=== PATIENT | male | born 1930 | race Caucasian/White ===

== ENCOUNTER 2018-09-10 14:09 | Inpatient (IN) | payer MEDICARE ==
[~2018-09-10] VITALS: Ht 177.8 cm; Wt 68.5 kg
[2018-09-10 14:09] VITALS: BP_SYST 181
[2018-09-10 15:54] LABS: BILIRUBIN,URINE NEGATIVE (NEGATIVE); BLOOD, URINE 3+ (NEGATIVE); CLARITY/URINE CLOUDY (CLEAR); COLOR,URINE RED (YELLOW); GLUCOSE,URINE NEGATIVE (NEGATIVE); KETONES,URINE NEGATIVE (NEGATIVE); LEUKOCYTE ESTERASE ,URINE 2+ (NEGATIVE); NITRITE, URINE POSITIVE (NEGATIVE); PH,URINE 7.5 (5.0-8.0); PROTEIN URINE 3+ (NEGATIVE); UROBILINOGEN,URINE 0.2 (0.2-1.0)
[2018-09-10 15:56] LABS: RBC,URINE >100 /HPF (0-3); WBC,URINE 50-80 /HPF (0-3)
[2018-09-10 15:57] LABS: BACTERIA,URINE MODERATE /HPF (None Seen); MUCUS,URINE None Seen /LPF (None Seen)
[2018-09-10 16:27] LABS: HEMATOCRIT 29.7 % (36-54); HEMOGLOBIN 9.7 g/dL (14.0-18.0); MEAN CORPUSCULAR HEMOGLOBIN 28 pg (27-31); MEAN CORPUSCULAR HGB CONC 33 % (32-36); MEAN CORPUSCULAR VOLUME 86 fL (79.0-98.0); PLATELET COUNT (AUTO) 299 K/uL (130-430); RED BLOOD CELL COUNT(AUTO) 3.47 MIL/uL (4.2-6.2); RED CELL DISTRIBUTION WIDTH 16.3 % (9.0-15.0); WHITE BLOOD COUNT (AUTO) 8.1 K/uL (4.8-10.8)
[2018-09-10 16:33] LABS: ANION GAP 9 (5-15); CALCIUM 9.1 mg/dL (8.4-11.0); CHLORIDE 105 mmol/L (98-107); CREATININE 2.97 mg/dL (0.55-1.30); GLUCOSE 126 mg/dL (70-99); POTASSIUM 5.3 mmol/L (3.5-5.1); SODIUM SERUM 136 mmol/L (136-145); UREA NITROGEN, BLOOD 53 mg/dL (8-21)
[2018-09-10 16:38] LABS: ALANINE AMINOTRANSFERASE 17 U/L (12-78); ALBUMIN 2.5 g/dL (3.4-4.8); ASPARTATE AMINOTRANSFERASE 14 U/L (10-37); INR 0.9 (0.80-1.20); PROTHROMBIN TIME 9.7 SECS (9.5-12.5); TOTAL BILIRUBIN 0.4 mg/dL (0.0-1.0)
[2018-09-10 16:44] LABS: BAND % (MANUAL) 5 % (0-6); LYMPHOCYTES % (MANUAL) 3 % (20-46)
[2018-09-10 16:45] LABS: METAMYELOCYTES % 1 % (0-0); MONOCYTES % (MANUAL) 1 % (0-11)
[2018-09-10 17:12] LABS: BASOPHILS % (MANUAL) 0 % (0-2); EOSINOPHILS % (MANUAL) 0 % (0-7)
[2018-09-10] MEDS ORDERED: traMADol HCL HCL 50 MG TABLET (ULTRAM) PO ONE (17:15)
[2018-09-10] MEDS ORDERED: SODIUM POLYSTYRENE SULFONATE 15 GM/60 ML UDBTL PO ONE (18:30)
[2018-09-10] MEDS ORDERED: cefTRIAXone 1 GM IVPB PREMIX 50 ML IV ONE (18:30)
[2018-09-10] MEDS ORDERED: NACL 0.9% 1,000 ML IV ONE (19:45)
[2018-09-10] MEDS ORDERED: VANCOMYCIN HCL 1,000 MG in NS 250 ML IV ONE (20:00)
[2018-09-10] MEDS ORDERED: KCL 20 mEq in D5NS 1000 mL 1,000 ML IV ONE (20:15)
[2018-09-10 21:29] VITALS: BP_SYST 96
[2018-09-10] MEDS ORDERED: CEFEPIME 1 GM in D5W 50 ML IV SCH (22:45)
[2018-09-10] MEDS ORDERED: D5NS 1,000 ML IV SCH (23:00)
[2018-09-10 23:33] LABS: HEMOGLOBIN 8.4 g/dL (14.0-18.0)
[2018-09-11] MEDS ORDERED: CEFEPIME 1 GM/VIAL (MAXIPIME) ONE (04:11)
[2018-09-11] MEDS ORDERED: cefTRIAXone 1 GM IVPB PREMIX 50 ML IV ONE (04:12)
[2018-09-11] MEDS ORDERED: VANCOMYCIN HCL 1000 MG/VIAL IV ONE (04:12)
[2018-09-11 06:09] LABS: BASOPHILS # (AUTO) 0.1 K/uL (0.0-0.2); BASOPHILS % (AUTO) 0.3 % (0.0-2.0); EOSINOPHILS % (AUTO) 0.1 % (0.0-4.0); HEMATOCRIT 25.7 % (36-54); HEMOGLOBIN 8.2 g/dL (14.0-18.0); LYMPHOCYTES # (AUTO) 0.6 K/uL (1.0-5.5); LYMPHOCYTES % (AUTO) 2.9 % (20.5-51.5); MEAN CORPUSCULAR HEMOGLOBIN 27 pg (27-31); MEAN CORPUSCULAR HGB CONC 32 % (32-36); MEAN CORPUSCULAR VOLUME 86 fL (79.0-98.0); MONOCYTES # (AUTO) 1.3 K/uL (0.0-1.0); MONOCYTES % (AUTO) 6.3 % (1.7-9.3); NEUTROPHILS # (AUTO) 18.1 K/uL (1.8-7.7); NEUTROPHILS % (AUTO) 90.4 % (40.0-70.0); PLATELET COUNT (AUTO) 287 K/uL (130-430)
[2018-09-11 06:34] VITALS: BP_SYST 123
[2018-09-11 07:10] VITALS: BP_SYST 124
[2018-09-11 08:05] LABS: ANION GAP 11 (5-15); CALCIUM 8.4 mg/dL (8.4-11.0); CHLORIDE 107 mmol/L (98-107); CREATININE 3.61 mg/dL (0.55-1.30); GLUCOSE 124 mg/dL (70-99); POTASSIUM 5.4 mmol/L (3.5-5.1); SODIUM SERUM 138 mmol/L (136-145); UREA NITROGEN, BLOOD 58 mg/dL (8-21)
[2018-09-11] MEDS ORDERED: HYT1 PO (08:58)
[2018-09-11] MEDS ORDERED: PRED5TAB PO (08:58)
[2018-09-11] MEDS ORDERED: MEGE400O4 PO (08:58)
[2018-09-11] MEDS ORDERED: METO25TA6 PO (08:58)
[2018-09-11] MEDS: NACL 0.9% 1,000 ML IV SCH ×2 (09:25→17:15)
[2018-09-11] MEDS: ACETAMINOPHEN 325 MG TABLET PO PRN ×2 (09:47→15:18)
[2018-09-11] MEDS ORDERED: ACETAMINOPHEN 325 MG TABLET ONE (09:55)
[2018-09-11 10:38] LABS: HEMATOCRIT 24.8 % (36-54); HEMOGLOBIN 7.8 g/dL (14.0-18.0)
[2018-09-11] MEDS ORDERED: PREDNISONE 5 MG TABLET PO ONE (11:15)
[2018-09-11] MEDS ORDERED: TERAZOSIN HCL 1 MG CAPSULE (HYTRIN) PO ONE (11:15)
[2018-09-11] MEDS ORDERED: METOPROLOL TARTRATE 25 MG TABLET PO ONE (11:30)
[2018-09-11] MEDS ORDERED: MEGESTROL ACETATE 400 MG/10 ML UDC PO ONE (11:30)
[2018-09-11 12:26] VITALS: BP_SYST 104
[2018-09-11] MEDS ORDERED: GENTAMICIN 100 mg/50 mL NS 50 ML IV ONE (15:30)
[2018-09-11 17:07] VITALS: BP_SYST 128
[2018-09-11 18:04] LABS: HEMATOCRIT 29.3 % (36-54); HEMOGLOBIN 9.5 g/dL (14.0-18.0)
[2018-09-11 19:56] VITALS: BP_SYST 141
[2018-09-11] MEDS ORDERED: METOPROLOL TARTRATE 25 MG TABLET PO SCH (21:00)
[2018-09-11] MEDS ORDERED: MEGESTROL ACETATE 400 MG/10 ML UDC PO SCH (21:00)
[2018-09-12] MEDS ORDERED: TERAZOSIN HCL 1 MG CAPSULE (HYTRIN) PO SCH (09:00)
[2018-09-12] MEDS ORDERED: PREDNISONE 5 MG TABLET PO SCH (09:00)
== END 2018-09-11 21:42 | disposition short-term general hospital (02) | DRG 698 ==
LOC: SED 14:09 → STU 20:11 → MERGE 20:11 → STU 21:00
PROVIDERS: ADMIT Family Medicine; ATTEND Family Medicine
PROC: 30233N1 Transfusion of Nonautologous Red Blood Cells into Peripheral Vein, Percutaneous Approach (ICD-10-PCS; principal; 2018-09-11)
DX: T83.593A Infection and inflammatory reaction due to other urinary stents, initial encounter (principal); A41.9 Sepsis, unspecified organism; N10 Acute pyelonephritis; N17.9 Acute kidney failure, unspecified; D63.8 Anemia in other chronic diseases classified elsewhere; E86.0 Dehydration; E87.5 Hyperkalemia; F03.90 Unspecified dementia, unspecified severity, without behavioral disturbance, psychotic disturbance, mood disturbance, and anxiety; I48.0 Paroxysmal atrial fibrillation; N18.9 Chronic kidney disease, unspecified; I12.9 Hypertensive chronic kidney disease with stage 1 through stage 4 chronic kidney disease, or unspecified chronic kidney disease; R31.0 Gross hematuria; Y73.8 Miscellaneous gastroenterology and urology devices associated with adverse incidents, not elsewhere classified; Z85.46 Personal history of malignant neoplasm of prostate; Z85.51 Personal history of malignant neoplasm of bladder; Z87.440 Personal history of urinary (tract) infections; Z88.1 Allergy status to other antibiotic agents; Z90.79 Acquired absence of other genital organ(s); Y92.89 Other specified places as the place of occurrence of the external cause
CPT/HCPCS: 36415; 71045; 76770; 80048; 80053; 81000-TC; 83605; 85007; 85018-TC; 85025; 85027; 85610-TC; 85730-TC; 86886; 86900; 86901; 86920; 87086; 87186-TC; 93005; 93306; 99285; G0378; J0692; J0696; J1580; J3370; J7030; J7042; J7050; J7060; J7512; P9021

== ENCOUNTER 2018-09-23 19:10 | Emergency (ER) | payer MEDICARE ==
[~2018-09-23] VITALS: Ht 152.4 cm; Wt 63.5 kg
[~2018-09-23 19:10] MED LIST: HYT1 PO; MEGE400O4 PO; METO25TA6 PO; PRED5TAB PO
[2018-09-23 19:14] VITALS: BP_SYST 92
[2018-09-23 19:48] LABS: HEMATOCRIT 29.1 % (36-54); HEMOGLOBIN 9.3 g/dL (14.0-18.0); MEAN CORPUSCULAR HEMOGLOBIN 27 pg (27-31); MEAN CORPUSCULAR HGB CONC 32 % (32-36); MEAN CORPUSCULAR VOLUME 86 fL (79.0-98.0); PLATELET COUNT (AUTO) 514 K/uL (130-430); WHITE BLOOD COUNT (AUTO) 21.2 K/uL (4.8-10.8)
[2018-09-23 19:57] LABS: BILIRUBIN,URINE 1+ (NEGATIVE); BLOOD, URINE 3+ (NEGATIVE); CLARITY/URINE CLOUDY (CLEAR); COLOR,URINE RED (YELLOW); GLUCOSE,URINE NEGATIVE (NEGATIVE); KETONES,URINE TRACE (NEGATIVE); LEUKOCYTE ESTERASE ,URINE 3+ (NEGATIVE); NITRITE, URINE POSITIVE (NEGATIVE); PH,URINE 7.5 (5.0-8.0); PROTEIN URINE 3+ (NEGATIVE); UROBILINOGEN,URINE 0.2 (0.2-1.0)
[2018-09-23 20:03] LABS: BACTERIA,URINE MANY /HPF (None Seen); RBC,URINE >100 /HPF (0-3); WBC,URINE 50-80 /HPF (0-3)
[2018-09-23] MEDS ORDERED: NACL 0.9% 1,000 ML IV ONE ×2 (20:15→22:00)
[2018-09-23 20:17] LABS: ATYPICAL LYMPHOCYTES % 0 % (0-0); BAND % (MANUAL) 3 % (0-6); BASOPHILS % (MANUAL) 0 % (0-2); EOSINOPHILS % (MANUAL) 0 % (0-7); LYMPHOCYTES % (MANUAL) 4 % (20-46); MONOCYTES % (MANUAL) 3 % (0-11)
[2018-09-23] MEDS ORDERED: VANCOMYCIN HCL 1,000 MG in NS 250 ML IV ONE (22:00)
[2018-09-23] MEDS ORDERED: PIPERACILLIN/TAZO 3.375 GM in NS 50 ML IV ONE (22:00)
[2018-09-23] MEDS ORDERED: PIPERACILLIN/TAZOBACTAM 3.375 GM/VIAL (ZOSYN) IV ONE (22:40)
[2018-09-23] MEDS ORDERED: VANCOMYCIN HCL 1000 MG/VIAL IV ONE (23:39)
[2018-09-23] MEDS ORDERED: ACETAMINOPHEN 325 MG TABLET PO ONE (23:45)
[2018-09-24 00:24] LABS: ANION GAP 12 (5-15); CALCIUM 8.5 mg/dL (8.4-11.0); CHLORIDE 105 mmol/L (98-107); CREATININE 2.95 mg/dL (0.55-1.30); GLUCOSE 126 mg/dL (70-99); POTASSIUM 5.6 mmol/L (3.5-5.1); SODIUM SERUM 133 mmol/L (136-145); UREA NITROGEN, BLOOD 49 mg/dL (8-21)
[2018-09-24 00:39] LABS: ALANINE AMINOTRANSFERASE 14 U/L (12-78); ALBUMIN 2.2 g/dL (3.4-4.8); ASPARTATE AMINOTRANSFERASE 17 U/L (10-37); TOTAL BILIRUBIN 0.4 mg/dL (0.0-1.0)
[2018-09-24] MEDS ORDERED: SODIUM POLYSTYRENE SULFONATE 15 GM/60 ML UDBTL PO ONE (01:00)
[2018-09-24] MEDS ORDERED: INSULIN REGULAR, HUMAN 10 UNITS/0.1 ML INJ IVP ONE (01:00)
[2018-09-24] MEDS ORDERED: DEXTROSE 50% JECT 50 ML DISP.SYRIN IVP ONE ×2 (01:00→01:15)
[2018-09-24 02:47] VITALS: BP_SYST 116
== END 2018-09-24 02:44 | disposition short-term general hospital (02) ==
LOC: SED 19:10
DX: T83.098A Other mechanical complication of other urinary catheter, initial encounter (principal); N32.89 Other specified disorders of bladder; I10 Essential (primary) hypertension; Z88.1 Allergy status to other antibiotic agents; Z79.899 Other long term (current) drug therapy; Z85.46 Personal history of malignant neoplasm of prostate; Z85.51 Personal history of malignant neoplasm of bladder; Y83.8 Other surgical procedures as the cause of abnormal reaction of the patient, or of later complication, without mention of misadventure at the time of the procedure; Y92.89 Other specified places as the place of occurrence of the external cause
CPT/HCPCS: 36415; 72192; 80053; 81000; 83605; 85007; 85027; 87040; 87086; 87186; 96365; 96367; 96375; 99285; J1815; J2543; J3370; J7030 ×2